=== PATIENT | male | born 1960 | race Caucasian/White ===

== ENCOUNTER → 2016-12-06 | Day surgery (SDC) | payer OTHER ==
[~2016-12-06] VITALS: Ht 182.9 cm; Wt 65.9 kg
== END | disposition home or self-care (01) ==
LOC: FAS 06:16
DX: Z12.11 Encounter for screening for malignant neoplasm of colon (principal); D12.5 Benign neoplasm of sigmoid colon; Z87.891 Personal history of nicotine dependence; Z80.0 Family history of malignant neoplasm of digestive organs; Z90.49 Acquired absence of other specified parts of digestive tract
CPT/HCPCS: 88305; J2704

== ENCOUNTER 2021-12-04 09:57 | Emergency (ER) | payer OTHER ==
[2021-12-04] MEDS ORDERED: CEPHALEXIN250 MG PO (12:27)
[2021-12-04] MEDS ORDERED: NORCO 5-325 TA1 EACH PO (12:27)
== END 2021-12-04 12:51 | disposition home or self-care (01) ==
LOC: FER 09:57
DX: S81.012A Laceration without foreign body, left knee, initial encounter (principal); Z23 Encounter for immunization; Z28.310 Unvaccinated for COVID-19; W29.3XXA Contact with powered garden and outdoor hand tools and machinery, initial encounter; Y92.89 Other specified places as the place of occurrence of the external cause; Y99.0 Civilian activity done for income or pay
CPT/HCPCS: 73560; 90471; 90715